=== PATIENT | male | born 1940 | race Hispanic/Latino ===

== ENCOUNTER 2021-04-07 17:17 | Outpatient (CLI) | payer MEDICARE | END 2021-04-07 17:18 | disposition home or self-care (01) | LOC: BURRAD 17:17 | PROVIDERS: ATTEND Nurse Practitioner | DX: M25.511 Pain in right shoulder (principal); M19.011 Primary osteoarthritis, right shoulder; M47.812 Spondylosis without myelopathy or radiculopathy, cervical region ==

== ENCOUNTER 2021-07-22 11:16 | Emergency (ER) | payer MEDICARE | END 2021-07-22 12:30 | disposition home or self-care (01) | LOC: BURERS 11:16 | DX: S09.90XA Unspecified injury of head, initial encounter (principal); S70.01XA Contusion of right hip, initial encounter; R26.9 Unspecified abnormalities of gait and mobility; R53.1 Weakness; E11.9 Type 2 diabetes mellitus without complications; I10 Essential (primary) hypertension; E78.5 Hyperlipidemia, unspecified; E78.00 Pure hypercholesterolemia, unspecified; Z79.84 Long term (current) use of oral hypoglycemic drugs; Z79.899 Other long term (current) drug therapy; Z79.4 Long term (current) use of insulin | CPT/HCPCS: 70450 ==